=== PATIENT | female | born 1955 | race Asian ===

== ENCOUNTER 2017-02-07 21:22 | Emergency (ER) | payer OTHER ==
[~2017-02-07] VITALS: Ht 154.9 cm; Wt 66.2 kg
[2017-02-07 23:18] LABS: PLATELET COUNT 208 K/uL (152-353)
[2017-02-07 23:27] LABS: POTASSIUM 4.1 mmol/L (3.6-5.2)
== END 2017-02-08 01:10 | disposition home or self-care (01) ==
LOC: ED 21:22
DX: S40.012A Contusion of left shoulder, initial encounter (principal); S40.011A Contusion of right shoulder, initial encounter; S40.022A Contusion of left upper arm, initial encounter; S40.021A Contusion of right upper arm, initial encounter; S13.9XXA Sprain of joints and ligaments of unspecified parts of neck, initial encounter; R51 Headache; E11.9 Type 2 diabetes mellitus without complications; Y09 Assault by unspecified means; Y92.098 Other place in other non-institutional residence as the place of occurrence of the external cause
CPT/HCPCS: 36415; 80053; 81000; 82150; 83036; 83690; 85027; 85651; 99283

== ENCOUNTER 2018-03-31 11:18 | Outpatient (CLI) | payer OTHER | END 2018-03-31 19:25 | disposition home or self-care (01) | LOC: MAMMO 11:18 | DX: Z12.31 Encounter for screening mammogram for malignant neoplasm of breast (principal) ==

== ENCOUNTER 2018-05-24 08:39 | Emergency (ER) | payer OTHER ==
[~2018-05-24] VITALS: Ht 154.9 cm; Wt 64.9 kg
[2018-05-24 08:56] VITALS: TEMP 98.3
[2018-05-24 12:06] VITALS: BP 138/57
== END 2018-05-24 12:06 | disposition home or self-care (01) ==
LOC: ED 08:39
DX: S46.912A Strain of unspecified muscle, fascia and tendon at shoulder and upper arm level, left arm, initial encounter (principal); S39.012A Strain of muscle, fascia and tendon of lower back, initial encounter; V43.52XA Car driver injured in collision with other type car in traffic accident, initial encounter
CPT/HCPCS: 96372; 99283; J1885

== ENCOUNTER 2018-12-03 14:48 | Emergency (ER) | payer OTHER ==
[~2018-12-03] VITALS: Ht 154.9 cm; Wt 64.9 kg
[2018-12-03 16:10] VITALS: BP 152/70; TEMP 98.5
== END 2018-12-03 16:13 | disposition home or self-care (01) ==
LOC: ED 14:48
DX: S70.02XA Contusion of left hip, initial encounter (principal); W10.8XXA Fall (on) (from) other stairs and steps, initial encounter; Y92.098 Other place in other non-institutional residence as the place of occurrence of the external cause
CPT/HCPCS: 96372; 99283; J1885

== ENCOUNTER 2020-08-21 13:16 | Emergency (ER) | payer OTHER ==
[~2020-08-21] VITALS: Ht 154.9 cm; Wt 65.8 kg
[2020-08-21 13:20] VITALS: BP 152/57; TEMP 98.2
[2020-08-21] MEDS ORDERED: METF500T PO (13:45)
[2020-08-21] MEDS ORDERED: GLIP10TA55 PO (13:46)
[2020-08-21] MEDS ORDERED: PRAVASTATIN10 MG PO (13:49)
[2020-08-21] MEDS ORDERED: LISI10TA11 PO (13:51)
== END 2020-08-21 14:50 | disposition home or self-care (01) ==
LOC: ED 13:16
DX: R20.1 Hypoesthesia of skin (principal)
CPT/HCPCS: 99282

== ENCOUNTER 2020-09-20 13:38 | Outpatient (CLI) | payer OTHER ==
[~2020-09-20 13:38] MED LIST: GLIP10TA55 PO; LISI10TA11 PO; METF500T PO; PRAVASTATIN10 MG PO
== END 2020-09-20 22:21 | disposition home or self-care (01) ==
LOC: MRI 13:38
PROVIDERS: ATTEND Specialist
DX: E11.42 Type 2 diabetes mellitus with diabetic polyneuropathy (principal); I63.9 Cerebral infarction, unspecified
CPT/HCPCS: 36415; 82565; 84520; A9576

== ENCOUNTER 2020-10-28 10:40 | Outpatient (CLI) | payer OTHER | END 2020-10-28 23:59 | disposition home or self-care (01) | LOC: MRI 10:40 | PROVIDERS: ATTEND Specialist | DX: E11.42 Type 2 diabetes mellitus with diabetic polyneuropathy (principal); I63.9 Cerebral infarction, unspecified ==

== ENCOUNTER 2020-10-29 10:26 | Outpatient (CLI) | payer OTHER | END 2020-10-29 23:59 | disposition home or self-care (01) | LOC: EMG 10:26 | PROVIDERS: ATTEND Specialist | DX: G56.02 Carpal tunnel syndrome, left upper limb (principal); G56.22 Lesion of ulnar nerve, left upper limb; G62.89 Other specified polyneuropathies | CPT/HCPCS: 95885; 95910 ==

== ENCOUNTER 2021-08-03 07:40 | Emergency (ER) | payer OTHER ==
[~2021-08-03] VITALS: Ht 152.4 cm; Wt 61.2 kg
[2021-08-03 10:30] VITALS: BP 145/57; TEMP 98.5
== END 2021-08-03 10:30 | disposition home or self-care (01) ==
LOC: ED 07:40
DX: R07.89 Other chest pain (principal); W18.39XA Other fall on same level, initial encounter; Y92.098 Other place in other non-institutional residence as the place of occurrence of the external cause
CPT/HCPCS: 96372; 99283; J1885